=== PATIENT | female | born 1955 | race African-American/Black ===

== ENCOUNTER 2016-10-30 11:28 | Emergency (ER) | payer OTHER ==
[2016-10-30 11:39] VITALS: BP 144/83; PULSE 94; TEMP 98.2; BMI 29.1
--- NOTE | 2016-10-30 12:32 | PDOC ---
History of Present Illness - General Chief Complaint: Eye Problem Stated Complaint: EYE PROBLEM Time Seen by Provider: 10/30/16 12:03 History Source: Patient Exam Limitations: No Limitations - History of Present Illness Initial Comments: 10/30/16 12:27 61-year-old female presents to the emergency with complaints of redness to her left eye upon awakening. Patient states has no pain but noted the redness this morning. Patient denies injury to the eye, use of contact lenses, or foreign body recently in the eye. Patient states is on baby aspirin and denies any other areas of bruising. Patient denies visual changes, headache or dizziness. Timing/Duration: 4-6 hours Severity: mild Associated Symptoms: reports: denies symptoms Past History - Travel Traveled outside of the country in the last 30 days: No Close contact w/someone who was outside of country & ill: No - Past Medical History Allergies/Adverse Reactions: Allergies Allergy/AdvReac Type Severity Reaction Status Date / Time albuterol Allergy Verified 10/30/16 11:39 codeine Allergy Verified 10/30/16 11:39 ibuprofen [From Motrin] Allergy Verified 10/30/16 11:39 Penicillins Allergy Verified 10/30/16 11:39 Sulfa (Sulfonamide Allergy Verified 10/30/16 11:39 Antibiotics) GI Disorders: Yes (gerd) HTN: Yes Other medical history: spinal cord inj - Psycho/Social/Smoking Cessation Hx Anxiety: No Suicidal Ideation: No Smoking History: Former smoker Have you smoked in the past 12 months: No Information on smoking cessation initiated: No Hx Alcohol Use: No Drug/Substance Use Hx: No Substance Use Type: None Patient Lives Alone: No Lives with/in: spouse/SO Review of Systems - Review of Systems Able to Perform ROS?: No Constitutional: No: Symptoms Reported HEENTM: No: Symptoms Reported, Eye Pain, Blurred Vision, Tearing Integumentary: No: Symptoms Reported Hematologic/Lymphatic: No: Symptoms Reported *Physical Exam - Vital Signs Last Vital Signs Temp Pulse Resp BP Pulse Ox 98.2 F 94 H 18 144/83 100 10/30/16 11:34 10/30/16 11:34 10/30/16 11:34 10/30/16 11:34 10/30/16 11:34 - Physical Exam General Appearance: Yes: Nourished, Appropriately Dressed. No: Apparent Distress HEENT: positive: EOMI, BRIAN (Noted subconjunctival hemorrhage to the medial aspect of left eye. No foreign body noted.) Integumentary: positive: Normal Color, Warm, Moist Neurologic: positive: Motor Strength 5/5 (ambulatory with cane) Medical Decision Making - Medical Decision Making 10/30/16 12:34 Patient with complaints of red left eye. Exam had noted lt subconjunctival hemorrhage. Patient had no signs of corneal abrasion or foreign body. Patient be discharged home with supportive care. 10/30/16 12:35 *DC/Admit/Observation/Transfer Diagnosis at time of Disposition: Subconjunctival hemorrhage of left eye - Discharge Dispostion Disposition: HOME Condition at time of disposition: Good - Referrals Referrals: Kiersten Spencer MD [Primary Care Provider] - - Patient Instructions Printed Discharge Instructions: DI for Subconjunctival Hemorrhage Additional Instructions: Please avoid manipulation and if you develop any headache, visual changes, or worsening symptoms please come back to the emergency room.
== END 2016-10-30 12:40 | disposition home or self-care (01) ==
LOC: JERFT 11:28
DX: H11.32 Conjunctival hemorrhage, left eye (principal)
CPT/HCPCS: 99281-25

== ENCOUNTER 2018-05-01 11:25 | Emergency (ER) | payer OTHER ==
[2018-05-01 11:50] VITALS: BMI 28.3
--- NOTE | 2018-05-01 12:35 | PDOC ---
History of Present Illness - General Chief Complaint: Pain, Acute Stated Complaint: LT BODY PAIN Time Seen by Provider: 05/01/18 12:01 History Source: Patient - History of Present Illness Timing/Duration: reports: getting worse Abdominal Pain Onset Location: reports: flank Past History - Past Medical History Allergies/Adverse Reactions: Allergies Allergy/AdvReac Type Severity Reaction Status Date / Time albuterol Allergy Verified 05/01/18 11:46 codeine Allergy Verified 05/01/18 11:46 ibuprofen [From Motrin] Allergy Verified 05/01/18 11:46 Penicillins Allergy Verified 05/01/18 11:46 Sulfa (Sulfonamide Allergy Verified 05/01/18 11:46 Antibiotics) Home Medications: Ambulatory Orders Amlodipine Besylate 10 mg PO DAILY 05/01/18 Irbesartan 300 mg PO DAILY 05/01/18 Omeprazole 20 mg PO DAILY 05/01/18 COPD: No GI Disorders: Yes (gerd) HTN: Yes - Suicide/Smoking/Psychosocial Hx Smoking History: Never smoked Have you smoked in the past 12 months: No Hx Alcohol Use: No Drug/Substance Use Hx: No Substance Use Type: None Review of Systems - Review of Systems Constitutional: No: Fever, Unintentional Wgt. Loss ABD/GI: No: Blood Streaked Bowels, Constipated, Diarrhea, Nausea, Rectal Bleeding, Vomiting : Yes: Flank Pain. No: Burning, Dysuria, Frequency, Hematuria *Physical Exam - Vital Signs Last Vital Signs Temp Pulse Resp BP Pulse Ox 98.2 F 92 H 16 150/90 99 05/01/18 11:46 05/01/18 11:46 05/01/18 11:46 05/01/18 11:46 05/01/18 11:46 - Physical Exam General Appearance: Yes: Appropriately Dressed, Mild Distress Respiratory/Chest: negative: Respiratory Distress Gastrointestinal/Abdominal: positive: Tender (poorly localized ttp to L lower abd), Soft Musculoskeletal: negative: CVA Tenderness Integumentary: positive: Dry, Warm Neurologic: positive: Fully Oriented, Alert, Normal Mood/Affect Moderate Sedation - Procedure Monitoring Vital Signs: Procedure Monitoring Vital Signs Temperature 98.2 F 05/01/18 11:46 Pulse Rate 92 H 05/01/18 11:46 Respiratory Rate 16 05/01/18 11:46 Blood Pressure 150/90 05/01/18 11:46 O2 Sat by Pulse Oximetry (%) 99 05/01/18 11:46 ED Treatment Course - LABORATORY CBC & Chemistry Diagram: 05/01/18 13:14 05/01/18 13:14 Medical Decision Making - Medical Decision Making 05/01/18 12:31 63 yo F, h/o HTN, gastritis, chronic neck pain, renal stones, no surgeries, here w/ intermittent L flank pain w/ gross hematuria x 2 months, gradually getting worse. States she had an US done 2 months ago revealing L renal stone, no infxn on ua/cx per pt. Pt states due to ongoing symptoms, was referred to Dr Burden of and had CT done yesterday but does not yet know results. Pt denies dysuria, n/v/f/c. No unexplained weight loss See exam Persistent L flank pain/gross hematuria L renal stone on US 2 months ago S/p CT a/p yesterday but no report yet Janelle uncomfortable w/ poorly localized ttp on exam -pain control -labs -will c/w to get CT report 05/01/18 12:46 05/01/18 16:32 Labs and UA unremarkable. CT read as b/l non-obstructing renal stones and possible phleboliths in L lower pelvis but no definite ureteral stone visualized. No diverticulitis or other acute pathology noted. Pt reports sig improvement w/ meds. Will dc to continue f/u with her urologist *DC/Admit/Observation/Transfer Diagnosis at time of Disposition: Renal stones, Left flank pain, Gross hematuria - Discharge Dispostion Disposition: HOME Condition at time of disposition: Improved - Referrals Referrals: Kiersten Spencer MD [Primary Care Provider] - - Patient Instructions Printed Discharge Instructions: DI for Kidney Stones Additional Instructions: Your CT shows multiple kidney stones locating in your kidneys on both sides. This is possibly the cause of the blood in your urine but you will need to follow-up with your urologist for further evaluation and management. Your urine and labs were normal. Take Tylenol for pain as needed - Post Discharge Activity
[2018-05-01] MEDS ORDERED: SODIUM CHLORIDE 1,000 ML IV STA (12:41)
[2018-05-01] MEDS ORDERED: ACETAMINOPHEN 1000 MG/100 ML VIAL (NON FORMULARY) IVPB ONE (12:41)
[2018-05-01] MEDS ORDERED: ACETAMINOPHEN INJECTION 100 ML IVPB ONE (12:48)
[2018-05-01 13:10] LABS: URINE APPEARANCE CLOUDY; URINE BILIRUBIN NEGATIVE (<2.0 mg/dL); URINE COLOR YELLOW; URINE GLUCOSE (UA) NEGATIVE (NEGATIVE); URINE KETONE NEGATIVE (NEGATIVE); URINE LEUK ESTERASE NEGATIVE (NEGATIVE); URINE NITRITE NEGATIVE (NEGATIVE); URINE PROTEIN 2+ (NEGATIVE); URINE UROBILINOGEN NEGATIVE mg/dL (0.2-1.0)
[2018-05-01 13:27] LABS: EOS % 1.6 % (0-4.5); HEMATOCRIT 39.9 % (32.4-45.2); HEMOGLOBIN 13.5 GM/dL (10.7-15.3); LYMPH % 35.6 % (8-40); MCH 28.6 pg (25.7-33.7); MCHC 33.7 g/dl (32.0-36.0); MEAN CELL VOLUME 84.9 fl (80-96); MEAN PLT VOLUME 9.8 fl (7.5-11.1); MONO % 9.9 % (3.8-10.2); NEUT % 51.9 % (42.8-82.8); PLATELET COUNT 244 K/MM3 (134-434); RDW 14.3 % (11.6-15.6); WHITE BLOOD COUNT 6.8 K/mm3 (4.0-10.0)
[2018-05-01 13:46] LABS: CALCIUM OXALATE CRYSTALS FEW /hpf (NONE SEEN); EPI CELLS RARE /HPF (FEW); URINE BACTERIA RARE /hpf (NONE SEEN); URINE MUCUS MANY
[2018-05-01 14:02] LABS: ALBUMIN 3.9 g/dl (3.4-5.0); ALK PHOS 85 U/L (45-117); ANION GAP 8 MMOL/L (8-16); BILIRUBIN,TOTAL 0.3 mg/dL (0.2-1); BLOOD UREA NITROGEN 12 mg/dL (7-18); CALCIUM 9.3 mg/dL (8.5-10.1); CHLORIDE 108 mmol/L (98-107); CO2 26 mmol/L (21-32); CREATININE 0.9 mg/dL (0.55-1.3); GLUCOSE,RANDOM 103 mg/dL (74-106); POTASSIUM 4.1 mmol/L (3.5-5.1); SGOT/AST 37 U/L (15-37); SGPT/ALT 70 U/L (13-61); SODIUM 142 mmol/L (136-145); TOT PROT 7.3 g/dl (6.4-8.2)
[2018-05-01 17:41] VITALS: BP 145/76; PULSE 87; TEMP 97.9
== END 2018-05-01 17:22 | disposition home or self-care (01) ==
LOC: JER 11:25
PROC: 3E033NZ Introduction of Analgesics, Hypnotics, Sedatives into Peripheral Vein, Percutaneous Approach (ICD-10-PCS; principal; 2018-05-01)
DX: N20.0 Calculus of kidney (principal); Z87.442 Personal history of urinary calculi; I10 Essential (primary) hypertension; K21.9 Gastro-esophageal reflux disease without esophagitis
CPT/HCPCS: 36415; 74176-TC; 80053; 81003; 81015; 85025; 87086; 96374; 99283-25; J0131; J7030

== ENCOUNTER 2018-11-29 16:39 | Emergency (ER) | payer OTHER ==
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
[2018-11-29 17:05] VITALS: BP 97/70; PULSE 80; TEMP 98.1; BMI 29.9
[2018-11-29] MEDS ORDERED: ACETAMINOPHEN 500 MG TABLET (FP) PO ONE (18:32)
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
[2018-11-29] MEDS ORDERED: ACETAMINOPHEN 500 MG TABLET (FP) ONE (18:37)
== END 2018-11-29 19:30 | disposition home or self-care (01) ==
LOC: JERFT 16:39
DX: S13.4XXA Sprain of ligaments of cervical spine, initial encounter (principal); M54.5 Low back pain; V43.52XA Car driver injured in collision with other type car in traffic accident, initial encounter; Y92.481 Parking lot as the place of occurrence of the external cause; Y93.89 Activity, other specified; Y99.8 Other external cause status
CPT/HCPCS: 71045-TC-FY; 71120-TC-FY; 99281-25